=== PATIENT | male | born 2000 | race African-American/Black ===

== ENCOUNTER → 2019-08-01 | Outpatient (CLI) | payer OTHER ==
--- NOTE | 2019-08-01 12:19 | Diagnostic Imaging Report ---
INDICATION: ANKLE PAIN RIGHT COMPARISON: None. FINDINGS: Three views of the right ankle were obtained. There is no acute fracture or dislocation. No focal osseous lesions are seen. The surrounding soft tissue structures are unremarkable. There are no radiopaque foreign bodies. IMPRESSION: 1. No acute fracture or dislocation in the right ankle. Dictated by: Dictated on workstation # [id number]
== END ==
LOC: RAD FS 11:14
PROVIDERS: ATTEND Nurse Practitioner
DX: M25.571 Pain in right ankle and joints of right foot (principal)
CPT/HCPCS: 73610

== ENCOUNTER → 2019-08-25 | Outpatient (CLI) | payer OTHER ==
--- NOTE | 2019-08-25 14:43 | Diagnostic Imaging Report ---
INDICATION: Right ankle injury. AP, oblique, and lateral views of the right ankle are obtained. FINDINGS: No acute fracture or dislocation is identified. No abnormal lytic or sclerotic focus is seen, and there is no radiopaque foreign body. IMPRESSION: No acute abnormality. Dictated by: Dictated on workstation # [id number]
== END ==
LOC: RAD FS 10:46
PROVIDERS: ATTEND Nurse Practitioner
DX: S90.01XA Contusion of right ankle, initial encounter (principal)
CPT/HCPCS: 73610

== ENCOUNTER → 2019-08-25 | Outpatient (CLI) | payer OTHER | LOC: RAD FS 11:33 | PROVIDERS: ATTEND Nurse Practitioner | DX: S90.01XA Contusion of right ankle, initial encounter (principal) ==